=== PATIENT | male | born 1970 | race American Indian/Alaskan Native ===

== ENCOUNTER 2019-12-07 13:29 | Emergency (ER) | payer SELFPAY ==
[2019-12-07 14:00] VITALS: BP 126/79
--- NOTE | 2019-12-07 16:32 | Emergency Department Report ---
ED Lower Extremity HPI - General Chief Complaint: Extremity Injury, Lower Stated Complaint: RT FOOT INJURY Time Seen by Provider: 12/07/19 16:31 Source: patient Mode of arrival: Ambulatory Limitations: No Limitations - History of Present Illness Initial Comments: Patient is a 49-year-old male who presents emergency room with complaints of a right foot injury that occurred earlier today. He states that his foot got pinned between the forklift and the wall. He has been ambulatory with a limp and has discomfort with ambulation. He denies any numbness or weakness. He denies any pain in his toes or his ankle. He denies any prior injury. Denies any past medical history or allergies to medications. - Related Data Previous Rx's Medication Instructions Recorded Last Taken Type Naproxen [EC-Naprosyn] 500 mg PO BID PRN #14 tablet. 12/07/19 Unknown Rx traMADoL [Ultram 50 MG tab] 50 mg PO Q6HR PRN #12 tablet 12/07/19 Unknown Rx Allergies Allergy/AdvReac Type Severity Reaction Status Date / Time No Known Allergies Allergy Unverified 12/07/19 13:56 ED Review of Systems ROS: Stated complaint: RT FOOT INJURY Other details as noted in HPI Comment: All other systems reviewed and negative ED Past Medical Hx - Past Medical History Previous Medical History?: No - Surgical History Past Surgical History?: No - Social History Smoking Status: Never Smoker Substance Use Type: None - Medications Home Medications: Home Medications Medication Instructions Recorded Confirmed Last Taken Type Naproxen [EC-Naprosyn] 500 mg PO BID PRN #14 tablet. 12/07/19 Unknown Rx traMADoL [Ultram 50 MG tab] 50 mg PO Q6HR PRN #12 tablet 12/07/19 Unknown Rx ED Physical Exam - General Limitations: No Limitations General appearance: alert, in no apparent distress - Head Head exam: Present: atraumatic, normocephalic - Eye Eye exam: Present: normal appearance - ENT ENT exam: Present: mucous membranes moist - Extremities Exam Extremities exam: Present: other (edema and ttp to the right dorsal foot, there is ecchymosis present, FROM of the right elizabeth, foot, and toes, no obvious deformity, neurovascularly intact, compartments are soft) - Neurological Exam Neurological exam: Present: alert, oriented X3 - Psychiatric Psychiatric exam: Present: normal affect, normal mood - Skin Skin exam: Present: warm, dry ED Course Vital Signs 12/07/19 13:59 Temperature 98.3 F Pulse Rate 77 Respiratory 20 Rate Blood Pressure 126/79 [Right] O2 Sat by Pulse 98 Oximetry ED Lower Extremity MDM - Radiology Data Radiology results: report reviewed HISTORY:right foot pain after forklift injury COMPARISON: None. TECHNIQUE: AP lateral and obliques views were obtained FINDINGS: Bones: Fractures involving the distal metatarsals noted-third, fourth and fifth without significant displacement Joint spaces: Maintained. Soft tissues: No significant abnormality. Additional findings: None. IMPRESSION: 1. Fractures as noted Signer Name: Cali Alston MD Signed: 12/07/2019 5:40 PM Workstation Name: [id number] Transcribed By: MARGI Dictated By: Cali Alston MD Electronically Authenticated By: Cali Alston MD Signed Date/Time: 12/07/191739 DD/ 38 TD/TT: - Medical Decision Making Patient is a 49-year-old male who presents emergency room with complaints of a right foot injury that occurred earlier today. He states that his foot got pinned between the forklift and the wall. He has been ambulatory with a limp and has discomfort with ambulation. He denies any numbness or weakness. He denies any pain in his toes or his ankle. He denies any prior injury. Denies any past medical history or allergies to medications. on exam: edema and ttp to the right dorsal foot, there is ecchymosis present, FROM of the right elizabeth, foot, and toes, no obvious deformity, neurovascularly intact, compartments are soft. XR right foot: Bones: Fractures involving the distal metatarsals noted- third, fourth and fifth without significant displacement Joint spaces: Maintained. Soft tissues: No significant abnormality. Patient given pain medication as he did not drive to the emergency department. Discussed all results with patient. Patient placed in short leg posterior splint and given crutches by nurse and remained neurovascularly intact. Advised patient not to bear weight, discussed the importance of orthopedic follow-up, discussed strict return precautions with patient. Patient given prescription for naproxen and tramadol. Advised patient please take medication as prescribed. do not drive or operate heavy machinery while taking pain medication. elevate the leg, rest. do not bear weight on the leg. please follow up with an orthopedic doctor. return to the emergency room for any new or worsening symptoms. - Differential Diagnosis strain, sprain, fx, dislocation Critical care attestation.: If time is entered above; I have spent that time in minutes in the direct care of this critically ill patient, excluding procedure time. ED Disposition Clinical Impression: Fracture of right foot Qualifiers: Encounter type: initial encounter Fracture type: closed Qualified Code(s): S92.901A - Unspecified fracture of right foot, initial encounter for closed fracture Disposition: DC-01 TO HOME OR SELFCARE Is pt being admited?: No Does the pt Need Aspirin: No Condition: Stable Instructions: Foot Fracture in Adults (ED) Additional Instructions: please take medication as prescribed. do not drive or operate heavy machinery while taking pain medication. elevate the leg, rest. do not bear weight on the leg. please follow up with an orthopedic doctor. return to the emergency room for any new or worsening symptoms. Prescriptions: Naproxen [EC-Naprosyn] 500 mg PO BID PRN #14 tablet.dr PRN Reason: Pain, Moderate (4-6) traMADoL [Ultram 50 MG tab] 50 mg PO Q6HR PRN #12 tablet PRN Reason: Pain , Severe (7-10) Referrals: MICK RAYMOND MD [Staff Physician] - 2-3 Days [facility] [Provider Group] - 2-3 Days Time of Disposition: 17:47 Print Language: OCCITAN
--- NOTE | 2019-12-07 17:44 | XRay Report ---
HISTORY:right foot pain after forklift injury COMPARISON: None. TECHNIQUE: AP lateral and obliques views were obtained FINDINGS: Bones: Fractures involving the distal metatarsals noted-third, fourth and fifth without significant d isplacement Joint spaces: Maintained. Soft tissues: No significant abnormality. Additional findings: None. IMPRESSION: 1. Fractures as noted Signer Name: Cali Alston MD Signed: 12/07/2019 5:40 PM Workstation Name: [id number]
[2019-12-07] MEDS ORDERED: oxyCODONE /ACETAMINOPHEN 5-325MG TAB PO ONE (18:01)
== END 2019-12-07 18:27 | disposition home or self-care (01) ==
LOC: ED 13:29
DX: S92.331A Displaced fracture of third metatarsal bone, right foot, initial encounter for closed fracture (principal); S92.341A Displaced fracture of fourth metatarsal bone, right foot, initial encounter for closed fracture; S92.351A Displaced fracture of fifth metatarsal bone, right foot, initial encounter for closed fracture; W22.8XXA Striking against or struck by other objects, initial encounter; Y93.89 Activity, other specified; Y92.89 Other specified places as the place of occurrence of the external cause; Y99.8 Other external cause status
CPT/HCPCS: 99283